=== PATIENT | male | born 1975 | race Caucasian/White ===

== ENCOUNTER → 2017-11-25 | Outpatient (CLI) | payer OTHER | END | disposition home or self-care (01) | LOC: KCIC MRI 09:41 | DX: G44.021 Chronic cluster headache, intractable (principal) | CPT/HCPCS: 70551 ==

== ENCOUNTER → 2018-12-26 | Outpatient (CLI) | payer OTHER ==
[~2018-12-26] MED LIST: ALPR0.5T PO; AMIT25TA PO; ASPI1TAB31 PO; DIVA250T PO; HYDR-3164 PO; LISI1TAB5 PO; NAPR-514 PO; PARO20TA99 PO; SUMA100T4 PO
--- NOTE | 2018-12-26 13:56 | KCIC ---
MR of the left shoulder HISTORY: Left shoulder pain and limited range of motion progressing for 3 months. TECHNIQUE: Routine multiplanar sequences are obtained. FINDINGS: Acromioclavicular joint is mildly degenerative with small undersurface osteophytes. Partial-thickness undersurface tear of the anterior supraspinatus tendon, about 80% deep. No complete through and through full-thickness rupture. This tear measures about 1 cm AP diameter. Subscapularis tendinosis without high-grade tear. No significant muscle atrophy. No significant subdeltoid bursal effusion. No significant joint effusion. Tear of the posterosuperior labrum. No acute articular cartilage defect is seen. The biceps tendon is intact. No bone destruction or acute fracture. No acute soft tissue abnormality. IMPRESSION: 1. Posterosuperior labral tear. 2. Small partial-thickness undersurface tear of the anterior supraspinatus tendon. No large or full-thickness rotator cuff tear. Electronically signed by: Christian Brock MD (12/26/2018 1:53 PM) [id number]
--- NOTE | 2018-12-26 14:21 | KCIC ---
EXAM: Right hip, 2 views. HISTORY: Pain. COMPARISON: None. FINDINGS: 2 views of the right hip are obtained. There is no fracture, dislocation or subluxation. There is a bone island within the superior acetabulum. The femoral head is normal in configuration. IMPRESSION: No acute osseous finding. Electronically signed by: Nona Barron MD (12/26/2018 2:18 PM) [email or web address]
== END | disposition home or self-care (01) ==
LOC: KCIC MRI 10:47
PROVIDERS: ATTEND Nurse Practitioner Family
DX: S43.492A Other sprain of left shoulder joint, initial encounter (principal); S46.012A Strain of muscle(s) and tendon(s) of the rotator cuff of left shoulder, initial encounter; M25.551 Pain in right hip; X58.XXXA Exposure to other specified factors, initial encounter; Y93.89 Activity, other specified; Y92.89 Other specified places as the place of occurrence of the external cause; Y99.8 Other external cause status
CPT/HCPCS: 73221; 73502

== ENCOUNTER → 2019-02-21 | Day surgery (SDC) | payer OTHER ==
[~2019-02-21] VITALS: Ht 172.7 cm; Wt 136.1 kg
[~2019-02-21] MED LIST changes: +DEXAMETHASONE SOD PHOS 4 MG/ML VIAL ONE; +EPINEPHrine VIAL 30 MG/30 ML VIAL ONE; +HYDROmorphone 2 MG/ML VIAL IV PRN; +IV RINGERS SOLUTION,LACTATED 1,000 ML BAG. ONE; +IV RINGERS,LACTATED 1000ML 1,000 ML IV SCH; +LABETALOL 20 MG/4 ML DISP.SYRIN. IVP ONE; +LIDOCAINE 1% PF 2 ML VIAL. ID PRN; +LIDOCAINE 2% PF 5 ML VIAL. ONE; +MIDAZOLAM HCL/PF 2 MG/2 ML VIAL. ONE; +MORPHINE SULFATE 2 MG/ML VIAL. IV PRN; +ONDANSETRON PF 4 MG/2 ML VIAL. IV PRN; +ONDANSETRON PF 4 MG/2 ML VIAL. ONE; +PROCHLORPERAZINE 10 MG/2 ML VIAL. IV PRN; +PROPOFOL 20 ML IV ONE; +ROCURONIUM 50 MG/5 ML VIAL. ONE; +SUCCINYLCHOLINE 200 MG/10 ML VIAL. ONE; +ceFAZolin SODIUM 3 GM in IV DEXTROSE 5% 100ML 100 ML IV PRN; +fentaNYL PF VIAL 100 MCG/2 ML VIAL IV PRN; +fentaNYL PF VIAL 100 MCG/2 ML VIAL ONE
[2019-02-21] MEDS: LABETALOL 20 MG/4 ML DISP.SYRIN. IVP PRN ×2 (09:36→09:51)
[2019-02-21 09:58] VITALS: BP 189/108
== END ==
LOC: SURG 08:37
PROVIDERS: ATTEND Orthopaedic Surgery
DX: S43.432A Superior glenoid labrum lesion of left shoulder, initial encounter (principal); X58.XXXA Exposure to other specified factors, initial encounter; Y93.9 Activity, unspecified; Y92.9 Unspecified place or not applicable; Y99.9 Unspecified external cause status; I10 Essential (primary) hypertension; F32.9 Major depressive disorder, single episode, unspecified; Z98.52 Vasectomy status; Z53.8 Procedure and treatment not carried out for other reasons
CPT/HCPCS: C1713; J0171; J0330; J2405; J2704; J1100; J2001; J2250; J3010

== ENCOUNTER → 2021-02-04 | Outpatient (CLI) | payer OTHER ==
[2019-02-21 09:58] VITALS: BP 189/108
[~2021-02-04] MED LIST changes: +AMLO-187 PO; +CRESTOR40 MG PO; +CYCL10TA2 PO; -DEXAMETHASONE SOD PHOS 4 MG/ML VIAL ONE; -EPINEPHrine VIAL 30 MG/30 ML VIAL ONE; +ESZO2TAB21 PO; +HYDR-2869 PO; -HYDROmorphone 2 MG/ML VIAL IV PRN; +INSU100I13 SQ; +INSU100V6 SQ; +IRBE300T23 PO; -IV RINGERS SOLUTION,LACTATED 1,000 ML BAG. ONE; -IV RINGERS,LACTATED 1000ML 1,000 ML IV SCH; -LABETALOL 20 MG/4 ML DISP.SYRIN. IVP ONE; -LIDOCAINE 1% PF 2 ML VIAL. ID PRN; -LIDOCAINE 2% PF 5 ML VIAL. ONE; +LISI1TAB37 PO; -LISI1TAB5 PO; +METO-239 PO; -MIDAZOLAM HCL/PF 2 MG/2 ML VIAL. ONE; -MORPHINE SULFATE 2 MG/ML VIAL. IV PRN; -ONDANSETRON PF 4 MG/2 ML VIAL. IV PRN; -ONDANSETRON PF 4 MG/2 ML VIAL. ONE; +OXYC1TAB19 PO; +PIOG30TA41 PO; -PROCHLORPERAZINE 10 MG/2 ML VIAL. IV PRN; -PROPOFOL 20 ML IV ONE; -ROCURONIUM 50 MG/5 ML VIAL. ONE; -SUCCINYLCHOLINE 200 MG/10 ML VIAL. ONE; -ceFAZolin SODIUM 3 GM in IV DEXTROSE 5% 100ML 100 ML IV PRN; -fentaNYL PF VIAL 100 MCG/2 ML VIAL IV PRN; -fentaNYL PF VIAL 100 MCG/2 ML VIAL ONE
== END ==
LOC: LAB 10:27
PROVIDERS: ATTEND Orthopaedic Surgery
DX: Z01.812 Encounter for preprocedural laboratory examination (principal); Z20.822 Contact with and (suspected) exposure to COVID-19
CPT/HCPCS: U0003; U0005

== ENCOUNTER 2021-02-07 10:53 | Day surgery (SDC) | payer OTHER ==
[~2021-02-07] VITALS: Ht 175.3 cm; Wt 131.0 kg
[2021-02-07 10:23] VITALS: BP 189/108
[~2021-02-07 10:53] MED LIST changes: +HYDROmorphone 2 MG/ML VIAL IVP PRN; +IV RINGERS,LACTATED 1000ML 1,000 ML IV SCH; +MORPHINE SULFATE 2 MG/ML VIAL. IVP PRN; -OXYC1TAB19 PO; +PROCHLORPERAZINE 10 MG/2 ML VIAL. IVP PRN; +ceFAZolin SODIUM 3 GM in IV DEXTROSE 5% 100ML 100 ML IV PRN; +fentaNYL PF VIAL 100 MCG/2 ML VIAL IVP PRN
[2021-02-07] MEDS: INSULIN LISPRO 100 UNIT/ML 3ML VIAL for OP,RR ONLY. SQ PRN ×2 (11:04→17:19)
[2021-02-07] MEDS ORDERED: MIDAZOLAM HCL/PF 2 MG/2 ML VIAL. ONE (11:31)
[2021-02-07] MEDS ORDERED: ROPIVacaine 0.5% PF 20 ML VIAL. ONE (11:31)
[2021-02-07] MEDS ORDERED: LIDOCAINE 1% PF 2 ML VIAL. ONE (11:32)
[2021-02-07] MEDS ORDERED: hydrALAZINE 20 MG/ML VIAL. ONE (11:38)
[2021-02-07] MEDS ORDERED: DEXAMETHASONE SOD PHOS 4 MG/ML VIAL ONE (11:43)
[2021-02-07] MEDS ORDERED: LIDOCAINE 2% PF 5 ML VIAL. ONE (11:43)
[2021-02-07] MEDS ORDERED: fentaNYL PF VIAL 100 MCG/2 ML VIAL ONE (11:43)
[2021-02-07] MEDS ORDERED: ONDANSETRON PF 4 MG/2 ML VIAL. ONE (11:43)
[2021-02-07] MEDS ORDERED: PROPOFOL 10 MG/ML (20ML) VIAL. IV ONE (11:43)
[2021-02-07] MEDS ORDERED: ROCURONIUM 50 MG/5 ML VIAL. ONE (11:43)
[2021-02-07] MEDS ORDERED: hydrALAZINE 20 MG/ML VIAL. IVP ONE ×2 (12:45→16:30)
[2021-02-07] MEDS ORDERED: SUCCINYLCHOLINE 200 MG/10 ML VIAL. ONE (13:24)
[2021-02-07] MEDS ORDERED: EPINEPHrine VIAL 30 MG/30 ML VIAL ONE (13:55)
[2021-02-07] MEDS ORDERED: NEOSTIGMINE METHYLSULFATE 5 MG/5 ML SYRINGE. ONE (15:39)
[2021-02-07] MEDS ORDERED: GLYCOPYRROLATE 1 MG/5 ML VIAL. ONE (15:40)
[2021-02-07] MEDS ORDERED: SEVOFLURANE 61 TO 120 MINUTES. IH ONE (15:44)
[2021-02-07] MEDS ORDERED: OXYC1TAB19 PO (15:57)
--- NOTE | 2021-02-07 15:59 | DISCH ---
DISCHARGE INSTRUCTIONS Condition on Discharge Condition on Discharge: Stable Activity After Discharge Activity Instructions for Disc: Other, see below (May lift and move arm without restriction but limit pushing pulling and lifting to 5 pounds for the first 6 weeks postoperatively) Weight Bearing Status after Di: Partial weight bearing Diet after Discharge Diet after Discharge: Diabetic No Calorie Level Wound Incision Care Wound/Incision Care: Ice to area for comfort, Change dressing (Remove dressing in 3 days may then shower no soaking until follow-up visit and wound check) Community/Resources/Services Services at Discharge: PT EVALUATE & TREAT (May start immediate passive and active range of motion with push pull or elbow flexion limit 5 pounds only due to biceps tenodesis for 6 weeks postop) Contacting the DRGina after DC Call your doctor for: Concerns you may have Follow-Up Follow up with: Dr. Brown or Laurence 7 to 10 days PAUL BROWN MD February 07, 2021 15:59
[2021-02-07] MEDS ORDERED: oxyCODONE/APAP 7.5/325 1 TAB TABLET PO ONE (16:30)
[2021-02-07] MEDS ORDERED: INSULIN LISPRO 100 UNIT/ML 3ML VIAL for OP,RR ONLY. SQ ONE ×2 (17:20)
--- NOTE | 2021-02-07 18:00 | PDOC4 ---
Operative Note Operative Note Date of surgery: 02/07/2021 Preoperative diagnosis: Left shoulder labral tear and partial-thickness rotator cuff tear Postoperative diagnosis: Same with type II SLAP tear, partial-thickness und ersurface rotator cuff tear Operative procedure: Left shoulder arthroscopy extensive debridement of labrum both superior and inferior posterior as well as undersurface partial rotator cuff tear and biceps tenodesis Surgeon: Kevin Assist: Cameron delaney assist Anesthesia: General plus scalene block Estimated blood loss: 5 cc Complications: None Operative indications: Please see my orthopedic clinic note for detailed operative indications and note that we had discussed both operative and nonopera tive treatment options including a decision based on his operative findings including the likelihood of biceps tenodesis versus labral repair and possible rotator cuff repair and we discussed the risks of possible infection nerve or blood vessel damage continued pain nonhealing medical other anesthetic complications among others all his questions were answered he wishes to proceed with surgical evaluation and treatment Operative text: Patient was identified procedure verified patient placed in the supine position on the operating table. After adequate amounts of general anesthesia were administered plus a pre-existing scalene block the patient was placed in the decubitus position left side up with all bony prominences well- padded. The left shoulder was then examined under anesthesia found to have full range of motion and no instability. The left shoulder was then prepped and drap ed in standard sterile fashion placed in the arthroscopic arm gomez with a total of 15 pounds of traction and after timeout was performed patient procedure identified and verified a standard posterior portal was established anterior portal established using spinal needle localization and the shoulder joint was systematically examined. He was found to have an unstable type II SLAP tear and significant labral fraying around its posterior and inferior aspect. Likewise there was some undersurface fraying of the rotator cuff that was debrided back to stable tissue along with the labrum. Biceps was tenotomized and extensive additional labral debridement was carried out to ensure stability. He had a normal bare area of the humerus and capsuloligamentous structures were likewise intact along with glenohumeral joint cartilage and subscapularis insertion. Subacromial space was then entered biceps groove was unroofed and the biceps retrieved through an anterior portal and was whipstitched and tenodesed after satisfactory tensioning with a [facility] [employer] 9 mm biceps tenodesis peek bolt fixation. Biceps contour was well fixated and restored. Joint was then drained of arthroscopic fluid portals closed with nylon suture sterile dressings were applied and he was returned to recovery room in stable condition having tolerated procedure well. Cameron amos was present for the proced ure and assisted in patient positioning prepping draping retraction closure dressings PAUL CERDA MD February 07, 2021 18:00
[2021-02-08] MEDS ORDERED: ceFAZolin SODIUM 3 GM in IV DEXTROSE 5% 100ML 100 ML IV PRN (06:00)
== END 2021-02-07 17:50 | disposition home or self-care (01) ==
LOC: SURG 10:53
PROVIDERS: ATTEND Orthopaedic Surgery
DX: M75.102 Unspecified rotator cuff tear or rupture of left shoulder, not specified as traumatic (principal); I10 Essential (primary) hypertension; E78.00 Pure hypercholesterolemia, unspecified; G47.30 Sleep apnea, unspecified; E66.9 Obesity, unspecified; E11.9 Type 2 diabetes mellitus without complications; E03.9 Hypothyroidism, unspecified; F41.9 Anxiety disorder, unspecified; F32.9 Major depressive disorder, single episode, unspecified; Z87.440 Personal history of urinary (tract) infections; Z79.4 Long term (current) use of insulin; Z79.899 Other long term (current) drug therapy; Z98.890 Other specified postprocedural states; Z87.891 Personal history of nicotine dependence
CPT/HCPCS: 29823; 29828; 64415; 82962; A4930; C1713; J0171; J0330; J0360; J1100; J1815; J2250; J2405; J2704; J2710; J2795; J3010; J3490